=== PATIENT | female | born 1940 | race African-American/Black ===

== ENCOUNTER 2023-08-01 11:13 | Emergency (ER) | payer OTHER ==
[~2023-08-01] VITALS: Ht 167.6 cm; Wt 55.0 kg
[2023-08-01 11:29] VITALS: O2SAT 100
[2023-08-01] MEDS: METOPROLOL TARTRATE 100MG TABLET PO ONE (12:15)
[2023-08-01] MEDS: AMIODARONE HCL 200 MG TABLET PO ONE (12:15)
[2023-08-01 12:38] VITALS: BP 165/72; PULSE 63; RESP 16; TEMP 97.9
== END 2023-08-01 13:51 | disposition home or self-care (01) ==
LOC: ER 11:13
DX: I10 Essential (primary) hypertension (principal); Z85.9 Personal history of malignant neoplasm, unspecified
CPT/HCPCS: 99283

== ENCOUNTER 2023-09-04 00:20 | Emergency (ER) | payer OTHER ==
[~2023-09-04] VITALS: Ht 168.9 cm; Wt 54.5 kg
[2023-09-04 00:30] VITALS: TEMP 97.8; O2SAT 100
[2023-09-04 02:40] VITALS: BP 144/71; PULSE 81; RESP 18
== END 2023-09-04 02:45 | disposition home or self-care (01) ==
LOC: ER 00:44
DX: I10 Essential (primary) hypertension (principal); Z85.118 Personal history of other malignant neoplasm of bronchus and lung
CPT/HCPCS: 99281